=== PATIENT | female | born 1985 | race Caucasian/White ===

== ENCOUNTER 2017-03-17 13:00 | Inpatient (IN) | payer OTHER ==
[~2017-03-17] VITALS: Ht 157.5 cm; Wt 3.6 kg
[2017-03-29] MEDS ORDERED: PRENATAL TABLE1 EAC1 PO (08:41)
[2017-03-29] MEDS ORDERED: SYNTHROID175 MCG PO (08:41)
[2017-03-29] MEDS ORDERED: ALDOMET500 MG PO (08:42)
[2017-03-29] MEDS ORDERED: ZANTAC 7575 MG PO (08:43)
[2017-03-29] MEDS ORDERED: HUMULIN R500 UNIT/2 SUBCUTANEO ×2 (08:44→08:45)
[2017-03-29] MEDS ORDERED: HUMULIN N100 UNIT/2 SUBCUTANEO ×2 (08:44→08:45)
== END 2017-03-31 14:48 | disposition home or self-care (01) | DRG 765 ==
LOC: OB/GYN 03-29 07:36 → LDR 03-29 07:36 → OB/GYN 03-30 00:20
PROVIDERS: Specialist
PROC: 3E0P7VZ Introduction of Hormone into Female Reproductive, Via Natural or Artificial Opening (ICD-10-PCS; 2017-03-29)
PROC: 4A1HXCZ Monitoring of Products of Conception, Cardiac Rate, External Approach (ICD-10-PCS; 2017-03-29)
PROC: 4A033R1 Measurement of Arterial Saturation, Peripheral, Percutaneous Approach (ICD-10-PCS; 2017-03-29)
PROC: 10D00Z1 Extraction of Products of Conception, Low, Open Approach (ICD-10-PCS; principal; 2017-03-29 19:00)
DX: O76 Abnormality in fetal heart rate and rhythm complicating labor and delivery (principal); O10.913 Unspecified pre-existing hypertension complicating pregnancy, third trimester; O24.813 Other pre-existing diabetes mellitus in pregnancy, third trimester; O24.013 Pre-existing type 1 diabetes mellitus, in pregnancy, third trimester; O62.1 Secondary uterine inertia; Z37.0 Single live birth; Z3A.39 39 weeks gestation of pregnancy; O99.283 Endocrine, nutritional and metabolic diseases complicating pregnancy, third trimester; E03.8 Other specified hypothyroidism; O99.213 Obesity complicating pregnancy, third trimester; E10.9 Type 1 diabetes mellitus without complications